=== PATIENT | female | born 1995 | race Caucasian/White ===

== ENCOUNTER 2018-02-27 10:39 | Emergency (ER) | payer SELFPAY ==
[~2018-02-27] VITALS: Ht 165.1 cm; Wt 82.9 kg
[2018-02-27] MEDS ORDERED: FIORICET (11:12)
[2018-02-27] MEDS ORDERED: SPRINTEC (11:12)
[2018-02-27] MEDS ORDERED: SODIUM CHLORIDE FLUSH 10ML SYR IVF ONE (11:30)
[2018-02-27] MEDS ORDERED: DIPHENHYDRAMINE 50 MG/ML, 1ML IVPush ONE (11:30)
[2018-02-27] MEDS ORDERED: PROCHLORPERAZINE 5 MG/ML, 2ML IVPush ONE (11:30)
[2018-02-27] MEDS ORDERED: DIPHENHYDRAMINE 50 MG/ML, 1ML ONE (11:43)
[2018-02-27] MEDS ORDERED: PROCHLORPERAZINE 5 MG/ML, 2ML ONE (11:43)
[2018-02-27 13:55] VITALS: BP 145/89
== END 2018-02-27 14:01 | disposition home or self-care (01) ==
LOC: ED 13:55
DX: G43.011 Migraine without aura, intractable, with status migrainosus (principal)
CPT/HCPCS: 96374; 96375; 99284; J0780; J1200

== ENCOUNTER 2018-05-20 22:14 | Emergency (ER) | payer OTHER ==
[~2018-05-20] VITALS: Ht 165.1 cm; Wt 84.0 kg
[~2018-05-20 22:14] MED LIST: FIORICET; SPRINTEC
[2018-05-20] MEDS ORDERED: DIPHENHYDRAMINE 50 MG/ML, 1ML ONE (22:56)
[2018-05-20] MEDS ORDERED: PROCHLORPERAZINE 5 MG/ML, 2ML ONE (22:56)
[2018-05-20] MEDS ORDERED: KETOROLAC 30 MG/1 ML ONE (22:57)
[2018-05-20] MEDS ORDERED: SODIUM CHLORIDE FLUSH 10ML SYR IVF ONE (23:00)
[2018-05-20] MEDS ORDERED: DIPHENHYDRAMINE 50 MG/ML, 1ML IVPush ONE (23:00)
[2018-05-20] MEDS ORDERED: PROCHLORPERAZINE 5 MG/ML, 2ML IVPush ONE (23:00)
[2018-05-20] MEDS ORDERED: SODIUM CHLORIDE 0.9% 1,000ML IVBOLUS ONE (23:00)
[2018-05-20] MEDS ORDERED: KETOROLAC 30 MG/1 ML IVPush ONE (23:00)
[2018-05-21 00:12] VITALS: BP 115/73
== END 2018-05-21 00:14 | disposition home or self-care (01) ==
LOC: ED 05-21 00:08
DX: G43.019 Migraine without aura, intractable, without status migrainosus (principal)
CPT/HCPCS: 93005; 96374; 96375; 99284; J0780; J1200; J1885; J7030

== ENCOUNTER 2018-09-12 16:34 | Emergency (ER) | payer OTHER ==
[~2018-09-12] VITALS: Ht 165.1 cm; Wt 81.8 kg
--- NOTE | 2018-09-12 16:42 | NUR ---
BIB EMS FROM [facility]. SUDDEN ONSET SUBSTERNAL CP RADIATING TO BACK AND RIGHT SHOULDER WHICH STARTED ABOUT 1200 TODAY. PAIN 7/10, +NAUSEA. PRODUCTIVE (YELLOW) STRONG COUGH AND SORE THROAT STATED THIS MORNING. NOW PRESENTS WITH CP 3/10, VSS WITH ELEVATED BP NOTED. PT ON MONITORS AND EKG COMPLETED.
--- NOTE | 2018-09-12 17:10 | NUR ---
DR DOTSON AT BEDSIDE, PT ASSESSMENT REVIEWED AND ORDERS REC'D
[2018-09-12 17:29] LABS: BASOPHILS # (AUTO) 0.04 x10^3/uL (0-0.1); BASOPHILS % (AUTO) 0 % (0-1); EOSINOPHILS # (AUTO) 0.07 x10^3/uL (0-0.4); EOSINOPHILS % (AUTO) 1 % (1-7); LYMPHOCYTES # (AUTO) 0.98 x10^3/uL (1-3.4); LYMPHOCYTES % (AUTO) 10 % (22-44); MD NO; MEAN CORPUSCULAR HEMOGLOBIN 28.4 pg (27.0-34.8); MEAN CORPUSCULAR HGB CONC 33.9 g/dL (32.4-35.8); MEAN CORPUSCULAR VOLUME 83.8 fL (80-100); MEAN PLATELET VOLUME 9.2 fL (7.4-10.4); MONOCYTES # (AUTO) 0.99 x10^3/uL (0.2-0.8); MONOCYTES % (AUTO) 10 % (2-9); NEUTROPHILS # (AUTO) 7.65 x10^3/uL (1.8-6.8); NEUTROPHILS % (AUTO) 79 % (42-75); PLATELET COUNT 289 x10^3/uL (130-400); RED BLOOD COUNT 4.78 x10^6/uL (3.82-5.3); RED CELL DISTRIBUTION WIDTH 13.6 % (9.6-15.2)
[2018-09-12 17:35] LABS: ALBUMIN 3.8 g/dL (3.4-5.0); ANION GAP 6 mmol/L (5-15); CALCIUM 9.1 mg/dL (8.5-10.1); CHLORIDE 108 mmol/L (98-107)
[2018-09-12 17:40] LABS: TROPONIN I < 0.015 ng/mL (0.000-0.045)
[2018-09-12 18:22] VITALS: BP 147/106
--- NOTE | 2018-09-12 18:24 | NUR ---
TASK RN: PT RESTING ON GURNEY. NADN. POP.
--- NOTE | 2018-09-12 18:33 | NUR ---
TASK RN: PT CHART REVIEWED AND PLACED FOR RECHECK.
== END 2018-09-12 19:27 | disposition home or self-care (01) ==
LOC: ED 19:15
DX: R07.89 Other chest pain (principal); J98.01 Acute bronchospasm; R00.0 Tachycardia, unspecified; I10 Essential (primary) hypertension; J45.909 Unspecified asthma, uncomplicated; G43.909 Migraine, unspecified, not intractable, without status migrainosus
CPT/HCPCS: 36415; 71045; 80048; 82040; 84484; 84703; 85025; 85379; 93005; 99284

== ENCOUNTER 2020-06-28 23:51 | Emergency (ER) | payer OTHER ==
[~2020-06-28] VITALS: Ht 165.1 cm; Wt 91.3 kg
[2020-06-28] MEDS ORDERED: ACET650S21 PO (23:59)
[2020-06-28] MEDS ORDERED: PREN1TAB62 PO (23:59)
[2020-06-29 02:07] VITALS: BP 129/96
== END 2020-06-29 02:22 | disposition home or self-care (01) ==
LOC: ED 06-29 02:00
DX: O99.511 Diseases of the respiratory system complicating pregnancy, first trimester (principal); J06.9 Acute upper respiratory infection, unspecified; Z3A.11 11 weeks gestation of pregnancy
CPT/HCPCS: 71045; 93005; 99283

== ENCOUNTER 2020-09-08 05:54 | Emergency (ER) | payer OTHER ==
[~2020-09-08] VITALS: Ht 165.1 cm; Wt 85.6 kg
[~2020-09-08 05:54] MED LIST changes: +ACET650S21 PO; +PREN1TAB62 PO
--- NOTE | 2020-09-08 06:15 | NUR ---
ERP AT BEDSIDE FOR ASSESSMENT
--- NOTE | 2020-09-08 06:39 | NUR ---
PT UP TO RESTROOM FOR URINE SAMPLE
[2020-09-08 07:00] LABS: BASOPHILS % (AUTO) 1 % (0-1); EOSINOPHILS % (AUTO) 1 % (1-7); LYMPHOCYTES % (AUTO) 21 % (22-44); MEAN CORPUSCULAR HEMOGLOBIN 28.6 pg (27.0-34.8); MEAN CORPUSCULAR HGB CONC 33.7 g/dL (32.4-35.8); MEAN PLATELET VOLUME 9.4 fL (7.4-10.4); MONOCYTES % (AUTO) 7 % (2-9); NEUTROPHILS % (AUTO) 71 % (42-75); PLATELET COUNT 240 x10^3/uL (130-400); RED BLOOD COUNT 4.45 x10^6/uL (3.82-5.3); RED CELL DISTRIBUTION WIDTH 13.6 % (9.6-15.2)
[2020-09-08 07:01] LABS: MD NO
--- NOTE | 2020-09-08 07:02 | NUR ---
Report received and care assumed.
[2020-09-08 07:06] LABS: ALANINE AMINOTRANSFERASE 36 U/L (12-78); ALBUMIN 3.3 g/dL (3.4-5.0); ANION GAP 9 mmol/L (5-15); CALCIUM 8.8 mg/dL (8.5-10.1); CHLORIDE 108 mmol/L (98-107); CREATININE 0.67 mg/dL (0.55-1.02)
[2020-09-08 07:08] LABS: ALKALINE PHOSPHATASE 65 U/L (45-117); BILIRUBIN,TOTAL 0.3 mg/dL (0.2-1.0); TOTAL PROTEIN 7.3 g/dL (6.4-8.2)
[2020-09-08] MEDS ORDERED: ACETAMINOPHEN 325 MG TABLET ONE (07:41)
[2020-09-08] MEDS ORDERED: ONDANSETRON ODT 4 MG ONE (07:41)
--- NOTE | 2020-09-08 07:42 | NUR ---
Pt states c/o nausea present. Emesis bag provided. Pt also has c/o L neck and upper back pain and would take APAP if offered. MD notified and orders received. Zofran given first, waiting for some time to allow tablet to dissolve and start taking effect before giving APAP tabs. APAP given now and VS reassessed.
[2020-09-08 07:49] LABS: MICROSCOPIC INDICATED
[2020-09-08] MEDS ORDERED: ACETAMINOPHEN 325 MG TABLET PO ONE (08:00)
[2020-09-08] MEDS ORDERED: ONDANSETRON ODT 4 MG PO ONE (08:00)
--- NOTE | 2020-09-08 08:45 | NUR ---
Pt states she had small amount of emesis, noted some pill fragments from APAP in bag with approx 50mL water present. New emesis bag given and pt aware of being up for recheck and awaiting MD to discuss results and plan of care.
--- NOTE | 2020-09-08 09:41 | NUR ---
Pt still awaiting MD recheck. Ensured pt that she has not been forgotten and that her patience is truly appreciated. Warm blanket provided and reassessment since emesis shows nausea resolved with pain decreased to 3/10 even with some of APAP noted in emesis earlier.
--- NOTE | 2020-09-08 10:09 | NUR ---
Spoke with MD about continued wait for recheck. states he is still waiting on OB doctor to return his call before he can discharge her. Pt updated to this information.
--- NOTE | 2020-09-08 10:13 | NUR ---
ED tray ordered for patient while she waits.
--- NOTE | 2020-09-08 11:07 | NUR ---
D/C instructions given and pt asked to wait in room after changing into her own clothing so that I can take her up to L&D for further eval. While getting a wheelchair in which to bring her up, pt left dept and could not be found after searching all patient bathrooms, d/c desk, ED entrance, and main entrance. L&D contacted and she has not arrived up there at this time.
[2020-09-08 11:09] VITALS: BP 133/76
[2020-09-08] MEDS ORDERED: LABE100T6 PO (13:17)
== END 2020-09-08 11:12 | disposition home or self-care (01) ==
LOC: ED 06:23
DX: O10.912 Unspecified pre-existing hypertension complicating pregnancy, second trimester (principal); O26.892 Other specified pregnancy related conditions, second trimester; H54.61 Unqualified visual loss, right eye, normal vision left eye; R51.9 Headache, unspecified; M79.602 Pain in left arm; Z3A.21 21 weeks gestation of pregnancy
CPT/HCPCS: 36415; 80053; 81001; 85025; 87086; 87147; 93005; 99285; Q0162

== ENCOUNTER 2020-09-08 11:09 | Outpatient (CLI) | payer OTHER ==
[~2020-09-08] VITALS: Ht 165.1 cm; Wt 85.5 kg
[2020-09-08 11:31] VITALS: BP 138/79
[2020-09-08] MEDS ORDERED: LABE100T6 PO (13:17)
[2020-09-08] MEDS ORDERED: LABETALOL 100 MG TABLET ONE (13:27)
[2020-09-08] MEDS ORDERED: LABETALOL 100 MG TABLET PO ONE (13:30)
== END 2020-09-08 13:35 | disposition home or self-care (01) ==
LOC: LDOP 11:09
PROVIDERS: ATTEND Obstetrics & Gynecology
DX: O16.2 Unspecified maternal hypertension, second trimester (principal); Z3A.16 16 weeks gestation of pregnancy
CPT/HCPCS: 99211; G0463

== ENCOUNTER 2020-12-30 08:58 | Inpatient (IN) | payer OTHER ==
[~2020-12-30] VITALS: Ht 165.1 cm; Wt 94.0 kg
[~2020-12-30 08:58] MED LIST changes: +LABE100T6 PO
[2020-12-30 09:02] VITALS: BP 174/108
[2020-12-30] MEDS: SODIUM CHLORIDE FLUSH 10ML SYR IVF SCH (09:25)
[2020-12-30 09:29] LABS: BASOPHILS % (AUTO) 0 % (0-1); EOSINOPHILS % (AUTO) 1 % (1-7); LYMPHOCYTES % (AUTO) 14 % (22-44); MEAN CORPUSCULAR HEMOGLOBIN 28.5 pg (27.0-34.8); MEAN CORPUSCULAR HGB CONC 34.1 g/dL (32.4-35.8); MEAN PLATELET VOLUME 10.3 fL (7.4-10.4); MONOCYTES % (AUTO) 7 % (2-9); NEUTROPHILS % (AUTO) 78 % (42-75); PLATELET COUNT 140 x10^3/uL (130-400); RED BLOOD COUNT 4.23 x10^6/uL (3.82-5.3); RED CELL DISTRIBUTION WIDTH 14.8 % (9.6-15.2)
[2020-12-30 09:38] LABS: MICROSCOPIC INDICATED
[2020-12-30 09:40] LABS: ALANINE AMINOTRANSFERASE 60 U/L (12-78); ALBUMIN 2.5 g/dL (3.4-5.0); ANION GAP 12 mmol/L (5-15); CALCIUM 8.8 mg/dL (8.5-10.1); CHLORIDE 108 mmol/L (98-107); CREATININE 0.69 mg/dL (0.55-1.02)
[2020-12-30 09:43] LABS: ALKALINE PHOSPHATASE 139 U/L (45-117); BILIRUBIN,TOTAL 0.2 mg/dL (0.2-1.0); TOTAL PROTEIN 6.3 g/dL (6.4-8.2)
[2020-12-30] MEDS: BETAMETHASONE 6 MG/ML, 5ML IM SCH (11:15)
[2020-12-30] MEDS: ACETAMINOPHEN 325 MG TABLET PO PRN (11:29)
[2020-12-30 11:54] LABS: AMPHETAMINE SCREEN, URINE Negative (Negative); BARBITURATE SCREEN, URINE Negative (Negative); BENZODIAZEPINE SCREEN, URINE Negative (Negative); CANNABINOID SCREEN, URINE Negative (Negative); COCAINE SCREEN, URINE Negative (Negative); METHADONE SCREEN, URINE Negative (Negative); OPIATE SCREEN, URINE Negative (Negative)
[2020-12-30] MEDS ORDERED: MAGNESIUM SULF. PMX 20GM/500ML 500 ML IV ONE (12:54)
[2020-12-30] MEDS ORDERED: MAGNESIUM SULFATE PMX 4GM/100M 100 ML ONE (12:54)
[2020-12-30] MEDS ORDERED: MAGNESIUM SULFATE PMX 4GM/100M 100 ML IVPB ONE (13:00)
[2020-12-30] MEDS: LACTATED RINGERS 1,000 ML IV PRN (13:01)
[2020-12-30] MEDS: MAGNESIUM SULF. PMX 20GM/500ML 500 ML IV SCH ×2 (13:44→22:54)
[2020-12-30] MEDS ORDERED: NEWBORN KIT ONE (14:15)
[2020-12-30] MEDS ORDERED: BUTALB/APAP/CAFFEINE 50MG/325MG/40MG ONE (14:45)
[2020-12-30] MEDS ORDERED: BUTALB/APAP/CAFFEINE 50MG/325MG/40MG PO PRN ×3 (15:00)
[2020-12-30] MEDS ORDERED: hydrALAzine 20 MG/ML, 1ML IVPush ONE (17:30)
[2020-12-30] MEDS ORDERED: LABETALOL 5MG/ML, 20ML IVPush PRN ×2 (17:30)
[2020-12-30] MEDS ORDERED: LABETALOL 5MG/ML, 20ML ONE (17:34)
[2020-12-30] MEDS ORDERED: LABETALOL 100 MG TABLET PO SCH (18:00)
[2020-12-30 18:25] LABS: BASOPHILS % (AUTO) 0 % (0-1); EOSINOPHILS % (AUTO) 0 % (1-7); LYMPHOCYTES % (AUTO) 9 % (22-44); MEAN CORPUSCULAR HEMOGLOBIN 28.2 pg (27.0-34.8); MEAN CORPUSCULAR HGB CONC 33.8 g/dL (32.4-35.8); MEAN PLATELET VOLUME 10.5 fL (7.4-10.4); MONOCYTES % (AUTO) 1 % (2-9); NEUTROPHILS % (AUTO) 90 % (42-75); PLATELET COUNT 158 x10^3/uL (130-400); RED CELL DISTRIBUTION WIDTH 15.1 % (9.6-15.2)
[2020-12-30 18:31] LABS: CREATININE,URINE RANDOM 17.5 mg/dL
[2020-12-30 18:31] LABS: ALANINE AMINOTRANSFERASE 81 U/L (12-78); ALBUMIN 2.9 g/dL (3.4-5.0); ANION GAP 13 mmol/L (5-15); CALCIUM 8.3 mg/dL (8.5-10.1); CHLORIDE 105 mmol/L (98-107); CREATININE 0.75 mg/dL (0.55-1.02)
[2020-12-30 18:33] LABS: ALKALINE PHOSPHATASE 170 U/L (45-117); BILIRUBIN,TOTAL 0.3 mg/dL (0.2-1.0); TOTAL PROTEIN 7.4 g/dL (6.4-8.2)
[2020-12-31 02:31] LABS: BASOPHILS % (AUTO) 0 % (0-1); EOSINOPHILS % (AUTO) 0 % (1-7); LYMPHOCYTES % (AUTO) 11 % (22-44); MEAN CORPUSCULAR HEMOGLOBIN 28.6 pg (27.0-34.8); MEAN CORPUSCULAR HGB CONC 33.9 g/dL (32.4-35.8); MEAN PLATELET VOLUME 10.5 fL (7.4-10.4); MONOCYTES % (AUTO) 5 % (2-9); NEUTROPHILS % (AUTO) 84 % (42-75); PLATELET COUNT 157 x10^3/uL (130-400); RED BLOOD COUNT 4.33 x10^6/uL (3.82-5.3); RED CELL DISTRIBUTION WIDTH 15.2 % (9.6-15.2)
[2020-12-31 02:40] LABS: ALANINE AMINOTRANSFERASE 68 U/L (12-78); ALBUMIN 2.6 g/dL (3.4-5.0); ANION GAP 12 mmol/L (5-15); CALCIUM 7.6 mg/dL (8.5-10.1); CHLORIDE 104 mmol/L (98-107); CREATININE 0.67 mg/dL (0.55-1.02)
[2020-12-31 02:42] LABS: ALKALINE PHOSPHATASE 157 U/L (45-117); BILIRUBIN,TOTAL 0.2 mg/dL (0.2-1.0); TOTAL PROTEIN 6.9 g/dL (6.4-8.2)
[2020-12-31 02:52] LABS: BILIRUBIN, DIRECT < 0.1 mg/dL (0.1-0.2)
[2020-12-31 06:43] LABS: BASOPHILS % (AUTO) 0 % (0-1); EOSINOPHILS % (AUTO) 0 % (1-7); LYMPHOCYTES % (AUTO) 12 % (22-44); MEAN CORPUSCULAR HEMOGLOBIN 28.1 pg (27.0-34.8); MEAN CORPUSCULAR HGB CONC 33.8 g/dL (32.4-35.8); MEAN PLATELET VOLUME 9.8 fL (7.4-10.4); MONOCYTES % (AUTO) 7 % (2-9); NEUTROPHILS % (AUTO) 81 % (42-75); PLATELET COUNT 148 x10^3/uL (130-400); RED BLOOD COUNT 4.32 x10^6/uL (3.82-5.3); RED CELL DISTRIBUTION WIDTH 14.8 % (9.6-15.2)
[2020-12-31 06:52] LABS: ALANINE AMINOTRANSFERASE 65 U/L (12-78); ALBUMIN 2.7 g/dL (3.4-5.0); ANION GAP 11 mmol/L (5-15); CALCIUM 7.4 mg/dL (8.5-10.1); CHLORIDE 105 mmol/L (98-107); CREATININE 0.59 mg/dL (0.55-1.02)
[2020-12-31 06:54] LABS: ALKALINE PHOSPHATASE 153 U/L (45-117); BILIRUBIN,TOTAL 0.2 mg/dL (0.2-1.0)
[2020-12-31] MEDS ORDERED: DOCUSATE 100 MG CAPSULE ONE (07:25)
[2020-12-31] MEDS: ACETAMINOPHEN 325 MG TABLET PO PRN (07:26)
[2020-12-31] MEDS: LABETALOL 200 MG TABLET PO SCH ×3 (07:27→20:46)
[2020-12-31] MEDS: DOCUSATE 100 MG CAPSULE PO SCH ×2 (07:30→20:46)
[2020-12-31 07:33] VITALS: BP 148/91
[2020-12-31] MEDS: SODIUM CHLORIDE FLUSH 10ML SYR IVF SCH ×2 (09:00→21:00)
[2020-12-31] MEDS: MAGNESIUM SULF. PMX 20GM/500ML 500 ML IV SCH ×2 (09:07→10:00)
[2020-12-31] MEDS ORDERED: DIPHENHYDRAMINE 25 MG CAPSULE ONE (10:35)
[2020-12-31] MEDS: PROCHLORPERAZINE 10MG TABLET PO PRN (10:37)
[2020-12-31] MEDS: DIPHENHYDRAMINE 25 MG CAPSULE PO PRN (10:38)
[2020-12-31] MEDS: BETAMETHASONE 6 MG/ML, 5ML IM SCH (11:44)
[2020-12-31] MEDS: LACTATED RINGERS 1,000 ML IV PRN (13:54)
[2020-12-31 18:42] LABS: BASOPHILS % (AUTO) 0 % (0-1); EOSINOPHILS % (AUTO) 0 % (1-7); LYMPHOCYTES % (AUTO) 9 % (22-44); MEAN CORPUSCULAR HEMOGLOBIN 28.4 pg (27.0-34.8); MEAN CORPUSCULAR HGB CONC 33.6 g/dL (32.4-35.8); MEAN PLATELET VOLUME 10.5 fL (7.4-10.4); MONOCYTES % (AUTO) 3 % (2-9); NEUTROPHILS % (AUTO) 88 % (42-75); PLATELET COUNT 168 x10^3/uL (130-400); RED CELL DISTRIBUTION WIDTH 14.8 % (9.6-15.2)
[2020-12-31 18:46] LABS: ALANINE AMINOTRANSFERASE 66 U/L (12-78); ALBUMIN 2.8 g/dL (3.4-5.0); ANION GAP 12 mmol/L (5-15); CALCIUM 7.2 mg/dL (8.5-10.1); CHLORIDE 106 mmol/L (98-107); CREATININE 1.06 mg/dL (0.55-1.02)
[2020-12-31 18:47] LABS: BILIRUBIN, DIRECT < 0.1 mg/dL (0.1-0.2)
[2020-12-31 18:48] LABS: ALKALINE PHOSPHATASE 168 U/L (45-117); BILIRUBIN,TOTAL 0.1 mg/dL (0.2-1.0); TOTAL PROTEIN 7.2 g/dL (6.4-8.2)
[2020-12-31 19:30] VITALS: BP 152/93
[2020-12-31] MEDS: PRENATAL VIT/IRON/FA 1 EACH TABLET PO SCH (20:40)
[2020-12-31] MEDS ORDERED: PRENATAL VIT/IRON/FA 1 EACH TABLET ONE (20:43)
[2021-01-01 06:14] LABS: BASOPHILS % (AUTO) 0 % (0-1); EOSINOPHILS % (AUTO) 0 % (1-7); LYMPHOCYTES % (AUTO) 14 % (22-44); MEAN CORPUSCULAR HEMOGLOBIN 28.3 pg (27.0-34.8); MEAN CORPUSCULAR HGB CONC 33.8 g/dL (32.4-35.8); MEAN PLATELET VOLUME 10.7 fL (7.4-10.4); MONOCYTES % (AUTO) 6 % (2-9); NEUTROPHILS % (AUTO) 81 % (42-75); PLATELET COUNT 157 x10^3/uL (130-400); RED BLOOD COUNT 4.03 x10^6/uL (3.82-5.3)
[2021-01-01 06:27] LABS: ALBUMIN 2.6 g/dL (3.4-5.0); ANION GAP 10 mmol/L (5-15); CALCIUM 7.7 mg/dL (8.5-10.1); CHLORIDE 110 mmol/L (98-107)
[2021-01-01 06:30] LABS: ALANINE AMINOTRANSFERASE 55 U/L (12-78); ALKALINE PHOSPHATASE 148 U/L (45-117); BILIRUBIN,TOTAL 0.2 mg/dL (0.2-1.0); CREATININE 0.74 mg/dL (0.55-1.02); TOTAL PROTEIN 6.5 g/dL (6.4-8.2)
[2021-01-01] MEDS: LABETALOL 5MG/ML, 20ML IVPush PRN (06:58)
[2021-01-01] MEDS: DOCUSATE 100 MG CAPSULE PO SCH ×2 (08:41→20:15)
[2021-01-01] MEDS: LABETALOL 200 MG TABLET PO SCH ×2 (08:41→20:15)
[2021-01-01] MEDS: SODIUM CHLORIDE FLUSH 10ML SYR IVF SCH ×2 (09:00→20:18)
[2021-01-01 18:02] LABS: BASOPHILS % (AUTO) 0 % (0-1); EOSINOPHILS % (AUTO) 0 % (1-7); LYMPHOCYTES % (AUTO) 20 % (22-44); MEAN CORPUSCULAR HEMOGLOBIN 28.1 pg (27.0-34.8); MEAN CORPUSCULAR HGB CONC 33.2 g/dL (32.4-35.8); MEAN PLATELET VOLUME 10.4 fL (7.4-10.4); MONOCYTES % (AUTO) 8 % (2-9); NEUTROPHILS % (AUTO) 71 % (42-75); PLATELET COUNT 164 x10^3/uL (130-400); RED BLOOD COUNT 4.11 x10^6/uL (3.82-5.3); RED CELL DISTRIBUTION WIDTH 15.1 % (9.6-15.2)
[2021-01-01 18:14] LABS: ALBUMIN 2.5 g/dL (3.4-5.0); ANION GAP 9 mmol/L (5-15); CALCIUM 8.5 mg/dL (8.5-10.1); CHLORIDE 110 mmol/L (98-107)
[2021-01-01 18:19] LABS: ALANINE AMINOTRANSFERASE 52 U/L (12-78); ALKALINE PHOSPHATASE 148 U/L (45-117); BILIRUBIN,TOTAL 0.1 mg/dL (0.2-1.0); CREATININE 0.72 mg/dL (0.55-1.02); TOTAL PROTEIN 6.4 g/dL (6.4-8.2)
[2021-01-01 19:20] VITALS: BP 159/91
[2021-01-01] MEDS: PRENATAL VIT/IRON/FA 1 EACH TABLET PO SCH (20:15)
[2021-01-01 21:53] LABS: CREATININE,URINE RANDOM 27.2 mg/dL
[2021-01-01 21:54] LABS: MICROSCOPIC NOT IND
[2021-01-01] MEDS ORDERED: LABETALOL 5MG/ML, 20ML IVPush PRN ×3 (23:30)
[2021-01-01] MEDS ORDERED: hydrALAzine 20 MG/ML, 1ML IVPush ONE (23:30)
[2021-01-02] MEDS ORDERED: CALCIUM CARBONATE 500 MG TAB.CHEW ONE (00:24)
[2021-01-02] MEDS ORDERED: SIMETHICONE 80 MG CHEW TAB ONE (01:20)
[2021-01-02] MEDS: LABETALOL 5MG/ML, 20ML IVPush PRN (01:20)
[2021-01-02] MEDS: SIMETHICONE 80 MG CHEW TAB PO PRN (01:22)
[2021-01-02] MEDS ORDERED: DIPHENHYDRAMINE 25 MG CAPSULE PO PRN (01:30)
[2021-01-02 06:36] LABS: BASOPHILS % (AUTO) 0 % (0-1); EOSINOPHILS % (AUTO) 0 % (1-7); LYMPHOCYTES % (AUTO) 22 % (22-44); MEAN CORPUSCULAR HGB CONC 33.1 g/dL (32.4-35.8); MEAN PLATELET VOLUME 10.1 fL (7.4-10.4); MONOCYTES % (AUTO) 8 % (2-9); NEUTROPHILS % (AUTO) 69 % (42-75); PLATELET COUNT 170 x10^3/uL (130-400); RED BLOOD COUNT 4.28 x10^6/uL (3.82-5.3); RED CELL DISTRIBUTION WIDTH 14.9 % (9.6-15.2)
[2021-01-02 06:49] LABS: ALANINE AMINOTRANSFERASE 47 U/L (12-78); ALBUMIN 2.5 g/dL (3.4-5.0); ANION GAP 12 mmol/L (5-15); CALCIUM 8.9 mg/dL (8.5-10.1); CHLORIDE 108 mmol/L (98-107)
[2021-01-02 06:50] LABS: ALKALINE PHOSPHATASE 134 U/L (45-117); BILIRUBIN,TOTAL 0.2 mg/dL (0.2-1.0); TOTAL PROTEIN 6.2 g/dL (6.4-8.2)
[2021-01-02 07:20] LABS: MICROSCOPIC AUTO
[2021-01-02 07:30] LABS: CREATININE,URINE RANDOM 95.1 mg/dL
[2021-01-02] MEDS: SODIUM CHLORIDE FLUSH 10ML SYR IVF SCH ×2 (08:00→21:30)
[2021-01-02] MEDS: PRENATAL VIT/IRON/FA 1 EACH TABLET PO SCH ×2 (08:15→20:17)
[2021-01-02] MEDS ORDERED: niFEDipine ER 30 MG TABLET.ER ONE (08:45)
[2021-01-02] MEDS: DOCUSATE 100 MG CAPSULE PO SCH ×2 (08:53→20:17)
[2021-01-02] MEDS: niFEDipine ER 30 MG TABLET.ER PO SCH (08:53)
[2021-01-02] MEDS: LABETALOL 200 MG TABLET PO SCH ×2 (10:30→20:17)
[2021-01-02 18:00] LABS: BASOPHILS % (AUTO) 0 % (0-1); EOSINOPHILS % (AUTO) 1 % (1-7); LYMPHOCYTES % (AUTO) 19 % (22-44); MEAN CORPUSCULAR HEMOGLOBIN 28.4 pg (27.0-34.8); MEAN CORPUSCULAR HGB CONC 33.6 g/dL (32.4-35.8); MEAN PLATELET VOLUME 11.1 fL (7.4-10.4); MONOCYTES % (AUTO) 9 % (2-9); NEUTROPHILS % (AUTO) 71 % (42-75); PLATELET COUNT 175 x10^3/uL (130-400); RED BLOOD COUNT 4.34 x10^6/uL (3.82-5.3); RED CELL DISTRIBUTION WIDTH 15.1 % (9.6-15.2)
[2021-01-02 18:10] LABS: ALANINE AMINOTRANSFERASE 49 U/L (12-78); ALBUMIN 2.5 g/dL (3.4-5.0); ANION GAP 12 mmol/L (5-15); CALCIUM 9.9 mg/dL (8.5-10.1); CHLORIDE 107 mmol/L (98-107); CREATININE 0.75 mg/dL (0.55-1.02)
[2021-01-02 18:12] LABS: ALKALINE PHOSPHATASE 144 U/L (45-117); BILIRUBIN,TOTAL 0.2 mg/dL (0.2-1.0); TOTAL PROTEIN 6.3 g/dL (6.4-8.2)
[2021-01-02 18:41] LABS: MICROSCOPIC AUTO
[2021-01-02 18:50] LABS: CREATININE,URINE RANDOM 35.5 mg/dL
[2021-01-02 20:03] VITALS: BP 105/63
[2021-01-03 06:35] LABS: ALBUMIN 2.5 g/dL (3.4-5.0); ANION GAP 11 mmol/L (5-15); BASOPHILS % (AUTO) 1 % (0-1); CALCIUM 8.8 mg/dL (8.5-10.1); CHLORIDE 108 mmol/L (98-107); EOSINOPHILS % (AUTO) 1 % (1-7); LYMPHOCYTES % (AUTO) 22 % (22-44); MEAN CORPUSCULAR HEMOGLOBIN 28.4 pg (27.0-34.8); MEAN CORPUSCULAR HGB CONC 33.8 g/dL (32.4-35.8); MEAN PLATELET VOLUME 10.3 fL (7.4-10.4); MONOCYTES % (AUTO) 8 % (2-9); NEUTROPHILS % (AUTO) 70 % (42-75); PLATELET COUNT 169 x10^3/uL (130-400); RED CELL DISTRIBUTION WIDTH 15.3 % (9.6-15.2)
[2021-01-03 06:37] LABS: ALANINE AMINOTRANSFERASE 47 U/L (12-78); ALKALINE PHOSPHATASE 136 U/L (45-117); BILIRUBIN,TOTAL 0.2 mg/dL (0.2-1.0); TOTAL PROTEIN 6.3 g/dL (6.4-8.2)
[2021-01-03] MEDS: LABETALOL 200 MG TABLET PO SCH ×2 (08:07→17:29)
[2021-01-03] MEDS: DOCUSATE 100 MG CAPSULE PO SCH ×2 (08:07→20:11)
[2021-01-03] MEDS: niFEDipine ER 30 MG TABLET.ER PO SCH (08:46)
[2021-01-03] MEDS: SODIUM CHLORIDE FLUSH 10ML SYR IVF SCH (09:00)
[2021-01-03 11:07] LABS: MICROSCOPIC INDICATED
[2021-01-03] MEDS ORDERED: ONDANSETRON 2MG/ML, 2ML ONE (11:27)
[2021-01-03] MEDS: ONDANSETRON ODT 4 MG PO PRN (11:34)
[2021-01-03] MEDS: ACETAMINOPHEN 325 MG TABLET PO PRN (14:52)
[2021-01-03 17:58] LABS: BASOPHILS % (AUTO) 1 % (0-1); EOSINOPHILS % (AUTO) 1 % (1-7); LYMPHOCYTES % (AUTO) 19 % (22-44); MEAN CORPUSCULAR HEMOGLOBIN 28.2 pg (27.0-34.8); MEAN CORPUSCULAR HGB CONC 33.4 g/dL (32.4-35.8); MEAN PLATELET VOLUME 10.4 fL (7.4-10.4); MONOCYTES % (AUTO) 9 % (2-9); NEUTROPHILS % (AUTO) 71 % (42-75); PLATELET COUNT 187 x10^3/uL (130-400); RED BLOOD COUNT 4.47 x10^6/uL (3.82-5.3); RED CELL DISTRIBUTION WIDTH 15.1 % (9.6-15.2)
[2021-01-03 18:05] LABS: ALANINE AMINOTRANSFERASE 46 U/L (12-78); ALBUMIN 2.6 g/dL (3.4-5.0); ANION GAP 9 mmol/L (5-15); CALCIUM 8.8 mg/dL (8.5-10.1); CHLORIDE 104 mmol/L (98-107); CREATININE 0.75 mg/dL (0.55-1.02)
[2021-01-03 18:08] LABS: ALKALINE PHOSPHATASE 155 U/L (45-117); BILIRUBIN,TOTAL 0.1 mg/dL (0.2-1.0); TOTAL PROTEIN 6.5 g/dL (6.4-8.2)
[2021-01-03 19:30] VITALS: BP 139/92
[2021-01-03] MEDS: PRENATAL VIT/IRON/FA 1 EACH TABLET PO SCH (20:11)
[2021-01-04] MEDS: PROCHLORPERAZINE 10MG TABLET PO PRN (01:55)
[2021-01-04] MEDS: DIPHENHYDRAMINE 25 MG CAPSULE PO PRN (01:55)
[2021-01-04] MEDS: LABETALOL 200 MG TABLET PO SCH ×2 (05:46→08:18)
[2021-01-04 06:10] LABS: BASOPHILS % (AUTO) 1 % (0-1); EOSINOPHILS % (AUTO) 1 % (1-7); LYMPHOCYTES % (AUTO) 22 % (22-44); MEAN CORPUSCULAR HGB CONC 33.4 g/dL (32.4-35.8); MEAN PLATELET VOLUME 10.2 fL (7.4-10.4); MONOCYTES % (AUTO) 7 % (2-9); NEUTROPHILS % (AUTO) 69 % (42-75); PLATELET COUNT 188 x10^3/uL (130-400); RED BLOOD COUNT 4.55 x10^6/uL (3.82-5.3); RED CELL DISTRIBUTION WIDTH 14.8 % (9.6-15.2)
[2021-01-04 06:23] LABS: ALANINE AMINOTRANSFERASE 39 U/L (12-78); ALBUMIN 2.5 g/dL (3.4-5.0); ANION GAP 10 mmol/L (5-15); CALCIUM 9.1 mg/dL (8.5-10.1); CHLORIDE 107 mmol/L (98-107); CREATININE 0.67 mg/dL (0.55-1.02)
[2021-01-04 06:25] LABS: ALKALINE PHOSPHATASE 150 U/L (45-117); BILIRUBIN,TOTAL 0.2 mg/dL (0.2-1.0); TOTAL PROTEIN 6.4 g/dL (6.4-8.2)
[2021-01-04] MEDS: niFEDipine ER 30 MG TABLET.ER PO SCH (08:18)
[2021-01-04] MEDS: DOCUSATE 100 MG CAPSULE PO SCH (08:18)
[2021-01-04] MEDS: SODIUM CHLORIDE FLUSH 10ML SYR IVF SCH ×2 (08:20→16:00)
[2021-01-04] MEDS: PRENATAL VIT/IRON/FA 1 EACH TABLET PO SCH (17:00)
[2021-01-05] MEDS: LABETALOL 200 MG TABLET PO SCH ×2 (07:39→19:00)
[2021-01-05] MEDS: niFEDipine ER 30 MG TABLET.ER PO SCH (07:39)
[2021-01-05] MEDS ORDERED: MAGNESIUM SULF. PMX 20GM/500ML 500 ML IV ONE (07:43)
[2021-01-05] MEDS ORDERED: MAGNESIUM SULFATE PMX 4GM/100M 100 ML IVPB ONE (08:00)
[2021-01-05 08:05] LABS: BASOPHILS % (AUTO) 1 % (0-1); EOSINOPHILS % (AUTO) 1 % (1-7); LYMPHOCYTES % (AUTO) 25 % (22-44); MEAN CORPUSCULAR HEMOGLOBIN 28.1 pg (27.0-34.8); MEAN CORPUSCULAR HGB CONC 33.6 g/dL (32.4-35.8); MEAN PLATELET VOLUME 9.9 fL (7.4-10.4); MONOCYTES % (AUTO) 7 % (2-9); NEUTROPHILS % (AUTO) 66 % (42-75); PLATELET COUNT 188 x10^3/uL (130-400); RED BLOOD COUNT 4.69 x10^6/uL (3.82-5.3); RED CELL DISTRIBUTION WIDTH 14.9 % (9.6-15.2)
[2021-01-05 08:14] LABS: ALANINE AMINOTRANSFERASE 42 U/L (12-78); ALBUMIN 2.5 g/dL (3.4-5.0); ANION GAP 9 mmol/L (5-15); CALCIUM 8.5 mg/dL (8.5-10.1); CHLORIDE 107 mmol/L (98-107); CREATININE 0.72 mg/dL (0.55-1.02)
[2021-01-05 08:17] LABS: ALKALINE PHOSPHATASE 160 U/L (45-117); BILIRUBIN,TOTAL 0.2 mg/dL (0.2-1.0); TOTAL PROTEIN 6.7 g/dL (6.4-8.2)
[2021-01-05] MEDS ORDERED: MISOPROSTOL 25 MCG TABLET ONE (08:18)
[2021-01-05] MEDS ORDERED: TERBUTALINE 1 MG/ML, 1ML SQ PRN (10:30)
[2021-01-05] MEDS ORDERED: OXYTOCIN 30U/ 0.9% NaCL 500ML 500 ML IV ONE (10:30)
[2021-01-05] MEDS ORDERED: FENTANYL PF 100 MCG/2ML IVPush PRN (10:30)
[2021-01-05] MEDS ORDERED: MISOPROSTOL 25 MCG TABLET VG PRN (10:30)
[2021-01-05] MEDS ORDERED: TERBUTALINE 1 MG/ML, 1ML IVPush PRN (10:30)
[2021-01-05] MEDS ORDERED: D5%-LACTATED RINGERS 1,000 ML IV SCH (10:30)
[2021-01-05] MEDS ORDERED: FENTANYL PF 100 MCG/2ML IV PRN (10:30)
[2021-01-05] MEDS ORDERED: OXYTOCIN 30U/ 0.9% NaCL 500ML 500 ML IV PRN (10:30)
[2021-01-05] MEDS ORDERED: AMPICILLIN 2 GM in SODIUM CHLORIDE 0.9% 100 ML IVPB STA (13:05)
[2021-01-05] MEDS: MAGNESIUM SULF. PMX 20GM/500ML 500 ML IV SCH (16:38)
[2021-01-05] MEDS ORDERED: BUPIVACAINE 0.25% ONE (16:58)
[2021-01-05] MEDS ORDERED: FENTANYL/BUPIV./NS/PF 250 ML EPIDCONT ONE (16:58)
[2021-01-05] MEDS: AMPICILLIN 1 GM in SODIUM CHLORIDE 0.9% 100 ML IVPB SCH ×2 (17:15→21:13)
[2021-01-05] MEDS ORDERED: DIPHENHYDRAMINE 50 MG/ML, 1ML IVPush PRN (17:30)
[2021-01-05] MEDS ORDERED: FENTANYL/BUPIV./NS/PF 250 ML EPIDCONT SCH (17:30)
[2021-01-05] MEDS ORDERED: LACTATED RINGERS 1,000 ML IV SCH (17:30)
[2021-01-05] MEDS ORDERED: ONDANSETRON 2MG/ML, 2ML IVPush PRN (17:30)
[2021-01-05] MEDS ORDERED: NALOXONE 0.4 MG/ML, 1ML IVPush PRN (17:30)
[2021-01-05] MEDS ORDERED: EPHEDRINE 50 MG/ML, 1ML IVPush PRN (17:30)
[2021-01-05] MEDS ORDERED: LACTATED RINGERS 1,000 ML IVBOLUS PRN (17:30)
[2021-01-06] MEDS: AMPICILLIN 1 GM in SODIUM CHLORIDE 0.9% 100 ML IVPB SCH ×4 (01:15→16:52)
[2021-01-06] MEDS: MAGNESIUM SULF. PMX 20GM/500ML 500 ML IV SCH ×2 (02:36→13:21)
[2021-01-06] MEDS ORDERED: hydrALAzine 20 MG/ML, 1ML ONE (05:14)
[2021-01-06] MEDS ORDERED: hydrALAzine 20 MG/ML, 1ML IVPush ONE ×3 (05:30)
[2021-01-06] MEDS ORDERED: LABETALOL 5MG/ML, 20ML IVPush ONE (05:30)
[2021-01-06] MEDS: ACETAMINOPHEN 325 MG TABLET PO PRN (06:19)
[2021-01-06] MEDS ORDERED: LIDOCAINE 1%, 20ML ONE (06:53)
[2021-01-06] MEDS ORDERED: MISOPROSTOL 200 MCG TABLET ONE (06:53)
[2021-01-06] MEDS: LABETALOL 200 MG TABLET PO SCH ×2 (06:58→16:52)
[2021-01-06] MEDS: niFEDipine ER 30 MG TABLET.ER PO SCH (06:58)
[2021-01-06] MEDS: ONDANSETRON ODT 4 MG PO PRN (12:30)
[2021-01-06] MEDS: PRENATAL VIT/IRON/FA 1 EACH TABLET PO SCH (20:42)
[2021-01-06] MEDS: DOCUSATE 100 MG CAPSULE PO SCH (20:42)
[2021-01-06] MEDS ORDERED: SODIUM CITRATE/CITRIC ACID 15 ML UDC ONE (22:01)
[2021-01-06] MEDS ORDERED: METOCLOPRAMIDE 5 MG/ML, 2ML ONE (22:01)
[2021-01-06] MEDS ORDERED: CEFAZOLIN 1,000 MG ONE (23:05)
[2021-01-06] MEDS ORDERED: EPHEDRINE 50 MG/ML, 1ML ONE (23:05)
[2021-01-06] MEDS ORDERED: OXYTOCIN 10 UNITS/ML, 1ML ONE (23:05)
[2021-01-06] MEDS ORDERED: LIDOCAINE-MPF 2% ,5ML ONE (23:25)
[2021-01-06] MEDS ORDERED: FENTANYL PF 100 MCG/2ML ONE (23:37)
[2021-01-07] MEDS ORDERED: LACTATED RINGERS 1,000 ML IV SCH
[2021-01-07] MEDS ORDERED: ONDANSETRON 2MG/ML, 2ML IV PRN
[2021-01-07] MEDS ORDERED: MISOPROSTOL 200 MCG TABLET PR PRN
[2021-01-07] MEDS ORDERED: SIMETHICONE 80 MG CHEW TAB PO PRN
[2021-01-07] MEDS ORDERED: OXYcodone IR 5MG TABLET PO PRN
[2021-01-07] MEDS ORDERED: ACETAMINOPHEN 325 MG TABLET PO PRN
[2021-01-07] MEDS ORDERED: MORPHINE SULFATE 4 MG/ML, 1ML IVPush PRN
[2021-01-07] MEDS: OXYcodone/APAP 5/325MG TABLET PO PRN ×4 (02:00→23:48)
[2021-01-07] MEDS: SIMETHICONE 80 MG CHEW TAB PO PRN (02:00)
[2021-01-07] MEDS ORDERED: hydrALAzine 20 MG/ML, 1ML ONE ×2 (02:10→07:33)
[2021-01-07] MEDS ORDERED: hydrALAzine 20 MG/ML, 1ML IVPush ONE ×3 (02:30)
[2021-01-07] MEDS: KETOROLAC 30 MG/1 ML IV SCH ×4 (06:00→23:48)
[2021-01-07 06:58] LABS: BASOPHILS % (AUTO) 0 % (0-1); EOSINOPHILS % (AUTO) 0 % (1-7); LYMPHOCYTES % (AUTO) 11 % (22-44); MEAN CORPUSCULAR HEMOGLOBIN 28.3 pg (27.0-34.8); MEAN CORPUSCULAR HGB CONC 33.8 g/dL (32.4-35.8); MEAN PLATELET VOLUME 10.7 fL (7.4-10.4); MONOCYTES % (AUTO) 6 % (2-9); NEUTROPHILS % (AUTO) 83 % (42-75); PLATELET COUNT 148 x10^3/uL (130-400); RED BLOOD COUNT 4.18 x10^6/uL (3.82-5.3); RED CELL DISTRIBUTION WIDTH 15.3 % (9.6-15.2)
[2021-01-07] MEDS ORDERED: MAGNESIUM SULF. PMX 20GM/500ML 500 ML IV SCH (08:00)
[2021-01-07] MEDS ORDERED: PRENATAL VIT/IRON/FA 1 EACH TABLET PO SCH (09:00)
[2021-01-07] MEDS: OXYTOCIN 30U/ 0.9% NaCL 500ML 500 ML IV SCH ×5 (10:00→23:00)
[2021-01-07] MEDS: LACTATED RINGERS 1,000 ML IV SCH ×3 (10:00→20:00)
[2021-01-07] MEDS: LABETALOL 300 MG TABLET PO SCH (18:40)
[2021-01-07] MEDS: PRENATAL VIT/IRON/FA 1 EACH TABLET PO SCH (21:00)
[2021-01-08] MEDS: OXYcodone/APAP 5/325MG TABLET PO PRN ×2 (03:00→17:33)
[2021-01-08] MEDS: KETOROLAC 30 MG/1 ML IV SCH ×3 (05:54→17:32)
[2021-01-08] MEDS: OXYTOCIN 30U/ 0.9% NaCL 500ML 500 ML IV SCH ×4 (06:00→19:00)
[2021-01-08] MEDS: LACTATED RINGERS 1,000 ML IV SCH ×2 (06:00→16:00)
[2021-01-08] MEDS: PRENATAL VIT/IRON/FA 1 EACH TABLET PO SCH ×2 (07:55→21:00)
[2021-01-08] MEDS: LABETALOL 300 MG TABLET PO SCH (07:55)
[2021-01-08] MEDS: DOCUSATE 100 MG CAPSULE PO PRN (07:57)
[2021-01-08] MEDS: niFEDipine ER 30 MG TABLET.ER PO SCH ×2 (09:00→09:13)
[2021-01-08 13:12] VITALS: BP 140/83
[2021-01-08 17:31] VITALS: BP 142/92
[2021-01-08] MEDS: SIMETHICONE 80 MG CHEW TAB PO PRN (17:32)
[2021-01-08] MEDS: LABETALOL 200 MG TABLET PO SCH (17:33)
[2021-01-08 20:50] VITALS: BP 138/88
[2021-01-08 23:48] VITALS: BP 154/95
[2021-01-09] VITALS (9 sets, daily range): BP systolic 141–160; BP diastolic 85–105
[2021-01-09] MEDS ORDERED: RHOGAM FROM BLOOD BANK 1 NOTE EA IM/IV ONE (01:00)
[2021-01-09] MEDS: IBUPROFEN 600 MG TABLET PO PRN ×2 (01:03→11:08)
[2021-01-09] MEDS: OXYcodone/APAP 5/325MG TABLET PO PRN ×3 (01:04→11:10)
[2021-01-09] MEDS: OXYTOCIN 30U/ 0.9% NaCL 500ML 500 ML IV SCH ×5 (02:00→22:00)
[2021-01-09] MEDS: LACTATED RINGERS 1,000 ML IV SCH ×3 (02:00→22:00)
[2021-01-09] MEDS: LABETALOL 200 MG TABLET PO SCH ×4 (05:30→21:00)
[2021-01-09] MEDS: PRENATAL VIT/IRON/FA 1 EACH TABLET PO SCH (07:59)
[2021-01-09] MEDS: SIMETHICONE 80 MG CHEW TAB PO PRN (07:59)
[2021-01-09] MEDS: DOCUSATE 100 MG CAPSULE PO PRN ×2 (07:59→20:43)
[2021-01-09] MEDS: niFEDipine ER 30 MG TABLET.ER PO SCH (07:59)
[2021-01-09] MEDS ORDERED: niFEDipine ER 30 MG TABLET.ER PO ONE (09:00)
[2021-01-09] MEDS: ACETAMINOPHEN 325 MG TABLET PO PRN (17:22)
[2021-01-10 00:20] VITALS: BP 145/92
[2021-01-10] MEDS: OXYcodone/APAP 5/325MG TABLET PO PRN (00:32)
[2021-01-10] MEDS: IBUPROFEN 600 MG TABLET PO PRN (00:32)
[2021-01-10] MEDS: OXYTOCIN 30U/ 0.9% NaCL 500ML 500 ML IV SCH ×3 (01:00→11:00)
[2021-01-10 04:30] VITALS: BP 147/98
[2021-01-10] MEDS ORDERED: IBUP-1222 PO (07:01)
[2021-01-10] MEDS ORDERED: OXYC1TAB14 PO (07:01)
[2021-01-10] MEDS ORDERED: NIFE30TA13 PO (07:01)
[2021-01-10] MEDS ORDERED: LABE200T6 PO (07:01)
[2021-01-10] MEDS ORDERED: DOCU-131 PO (07:01)
[2021-01-10 07:54] VITALS: BP 149/98
[2021-01-10] MEDS: LACTATED RINGERS 1,000 ML IV SCH (08:00)
[2021-01-10] MEDS ORDERED: PRENATAL VIT/IRON/FA 1 EACH TABLET PO SCH (09:00)
[2021-01-10] MEDS: LABETALOL 200 MG TABLET PO SCH (09:03)
[2021-01-10] MEDS: SIMETHICONE 80 MG CHEW TAB PO PRN (09:04)
[2021-01-10] MEDS: DOCUSATE 100 MG CAPSULE PO PRN (09:04)
[2021-01-10] MEDS ORDERED: niFEDipine ER 30 MG TABLET.ER PO SCH (09:30)
[2021-01-10] MEDS ORDERED: DIPH,PERTUSS(ACELL),TET VAC/PF NC IM-VACC ONE ×3 (11:14→15:34)
[2021-01-10 13:15] VITALS: BP 141/91
== END 2021-01-10 16:00 | disposition home or self-care (01) | DRG 787 ==
LOC: LDOP 08:58 → LDIP 10:46 → 2NE 01-07 04:32 → 2NW 01-08 06:13
PROVIDERS: ADMIT Obstetrics & Gynecology; ATTEND Obstetrics & Gynecology
PROC: 3E0P7VZ Introduction of Hormone into Female Reproductive, Via Natural or Artificial Opening (ICD-10-PCS; 2021-01-05)
PROC: 10D00Z1 Extraction of Products of Conception, Low, Open Approach (ICD-10-PCS; principal; 2021-01-07)
PROC: 3E0234Z Introduction of Serum, Toxoid and Vaccine into Muscle, Percutaneous Approach (ICD-10-PCS; 2021-01-09)
DX: O14.14 Severe pre-eclampsia complicating childbirth (principal); O99.12 Other diseases of the blood and blood-forming organs and certain disorders involving the immune mechanism complicating childbirth; O61.8 Other failed induction of labor; O16.4 Unspecified maternal hypertension, complicating childbirth; O99.214 Obesity complicating childbirth; E66.9 Obesity, unspecified; O62.0 Primary inadequate contractions; D69.6 Thrombocytopenia, unspecified; Z20.822 Contact with and (suspected) exposure to COVID-19; O99.824 Streptococcus B carrier state complicating childbirth; O26.893 Other specified pregnancy related conditions, third trimester; Z67.21 Type B blood, Rh negative; Z3A.33 33 weeks gestation of pregnancy; Z37.0 Single live birth; Z88.8 Allergy status to other drugs, medicaments and biological substances; Z91.040 Latex allergy status
CPT/HCPCS: 36415; 87806; J3490; J7121; Q0164; 80053; 80307; 81001; 81003; 82248; 82570; 83735; 84156; 84550; 85025; 85461; 86592; 86762; 86850; 86900; 87081; 87147; 87340; 87635; 88305; 90715; G0378; J0290; J0690; J0702; J1885; J2405; J2790; J3010; Q0162; G0475; J0360; J2590; J3475; J7120; Q0163